=== PATIENT | female | born 1985 | race Hispanic/Latino ===

== ENCOUNTER 2021-02-06 08:22 | Emergency (ER) | payer SELFPAY ==
--- OUTSIDE RECORDS SUMMARY | 2021-02-06 08:24 | XMS REPORT | Continuity of Care Document ---
:1985 Author Organization [facility] t Address [address] [place] [address] Care Team Providers Name Role Phone Lab, Adc Fam Pob I Attending Clinician Unavailable Lab, Covid Attending Clinician Unavailable Problems This patient has no known problems. Allergies, Adverse Reactions, Alerts This patient has no known allergies or adverse reactions. Medications This patient has no known medications. Procedures This patient has no known procedures. Encounters Start End Encounter Admission Attending Care Care Encounter Source Date/Time Date/Time Type Type Clinicians Facility Department ID 2020-10-19 2020-10-19 Laboratory Lab, [facility] [id number] 14:11:54 14:31:54 Only Fam Pob I [facility] [id number] [place] [id number] Professio [phone] nal [address] 2020-07-25 2020-07-25 Laboratory Lab, [facility] [id number] 14:57:41 15:17:41 Only Fam Pob I Health [id number] [place] [id number] Professio [phone] nal [address] 2020-07-25 2020-07-25 Letter Lab, [facility] [id number] 00:00:00 00:00:00 (Out) [facility] [id number] [place] [id number] Professio [phone] nal [address] Results This patient has no known results.
--- NOTE | 2021-02-06 09:19 | RAD REPORT ---
EXAM DESCRIPTION: CT - Head Brain Wo Cont - 02/06/2021 8:58 am CLINICAL HISTORY: Numbness COMPARISON: None. TECHNIQUE: Computed axial tomography of the head was obtained. IV contrast was not requested. All CT scans are performed using dose optimization technique as appropriate and may include automated exposure control or mA/KV adjustment according to patient size. FINDINGS: An intracranial bleed is not seen . The ventricles are normal in caliber. No extra-axial fluid collection is noted. Fluid within the sinuses/ mastoids is not seen. IMPRESSION: No acute intracranial abnormality is seen. If patient's symptoms persist MRI of the bra in would be recommended.
[2021-02-06 09:21] LABS: Absolute Lymphocytes (CBC) 1.6 K/uL (0.7-4.9); Basophils % 0.6 % (0-1.3); Hematocrit 36.7 % (36.0-45.0); Lymphocytes % 26.6 % (15.3-44.8); MPV 8.9 fL (7.6-11.3); RBC Red Blood Cell Count 4.32 M/uL (3.86-4.86)
[2021-02-06 09:35] LABS: Protime INR 0.95
[2021-02-06 09:43] LABS: ALT/SGPT 17 U/L (12-78); AST/SGOT 12 U/L (15-37); Albumin 3.6 g/dL (3.4-5.0); Alkaline Phosphatase 88 U/L (45-117); BUN Blood Urea Nitrogen 7 mg/dL (7-18); Bicarbonate 27 mmol/L (21-32); Bilirubin Direct 0.1 mg/dL (0-0.2); Bilirubin Total 0.5 mg/dL (0.2-1.0); Glucose Level 100 mg/dL (74-106); Magnesium 1.9 mg/dL (1.8-2.4); NT PRO-BNP 39 pg/mL (<125); Potassium 3.8 mmol/L (3.5-5.1); Sodium Level 141 mmol/L (136-145); Troponin (Emerg Dept Use Only) < 0.02 ng/mL (0.0-0.045)
--- NOTE | 2021-02-06 10:20 | RAD REPORT ---
EXAM DESCRIPTION: [place] Single View02/06/2021 9:51 am CLINICAL HISTORY: Cough COMPARISON: none FINDINGS: The lungs appear clear of acute infiltrate. The heart is normal size IMPRESSION: No acute abnormalities displayed
--- NOTE | 2021-02-06 13:14 | RAD REPORT ---
EXAM DESCRIPTION: MRI - Brain W/Wo Cont - 02/06/2021 1:04 pm CLINICAL HISTORY: NUMBNESS Headache, drowsiness, CVA symptomology COMPARISON: MRA Head Wo Cont dated 02/06/2021; Head Brain Wo Cont dated 02/06/2021 TECHNIQUE: Multi-sequence, multiplanar MR imaging of the brain was performed with contrast. FINDINGS: No intracranial hemorrhage, hydrocephalus, or extra-axial fluid collection. No edema or sh ift of midline structures. No intracranial mass. DWI is negative for acute CVA. The midline structures are normally formed. Mastoid air cells and paranasal sinuses are clear. Post-contrast images show no abnormal enhancement to suggest tumor or infection. Small developmental venous anomaly is seen right parietal region, benign. IMPRESSION: No acute or aggressive intracranial abnormalities. No pathologic post-contrast enhancement suspected.
--- NOTE | 2021-02-06 13:16 | RAD REPORT ---
EXAM DESCRIPTION: MRI - MRA Head Wo Cont - 02/06/2021 12:50 pm CLINICAL HISTORY: NUMBNESS CVA COMPARISON: Head Brain Wo Cont dated 02/06/2021; MRA Neck W/Wo Cont dated 02/06/2021 FINDINGS: 3D noncontrast [id number] MR angiography of the [place] was performed. No aneurysm, flow-limiting stenosis or vascular malformation is seen. Forward flow seen in codominant vertebral arteries. The visualized dural venous sinuses appear patent. IMPRESSION: No significant flow abnormality of the [place] is identified.
--- NOTE | 2021-02-06 13:20 | RAD REPORT ---
EXAM DESCRIPTION: MRI - MRA Neck W/Wo Cont - 02/06/2021 1:03 pm CLINICAL HISTORY: NUMBNESS Headache, drowsiness COMPARISON: No comparisons FINDINGS: Contrast enhance 2D [id number] MR angiography of the neck vessels was performed. A left aortic arch is present. Both common carotid arteries and subclavian arteries are patent. Both internal carotid artery show no significant narrowing. No flow abnormality is seen. Antegrade flow in symmetric vertebral artery is noted. IMPRESSION: No flow abnormality of the neck vessels is identified.
--- NOTE | 2021-02-06 13:28 | ER ---
Nurse's Notes [facility] Name: Lilia Murphy Age: 35 yrs Sex: Female : 1985 Arrival Date: 02/06/2021 Time: 08:28 Bed 7 Private MD: Diagnosis: Paresthesia of skin Presentation: 02/06 08:29 Chief complaint: EMS states: called out for left sided facial numbness and left arm em numbness that started 0740 and a headache, pt reports she has had 2 similar episodes and was told it was an anxiety attack, denies any weakness, stoke scale 0, pt reports headache has resolved, rates numbness 5/10, BGL 129 on scene, 20 G RAC. Coronavirus screen: Client denies travel out of the [place] in the last 14 days. Ebola Screen: Patient negative for fever greater than or equal to 101.5 degrees Fahrenheit, and additional compatible Ebola Virus Disease symptoms Patient denies exposure to infectious person. Patient denies travel to an Ebola-affected area in the 21 days before illness onset. No symptoms or risks identified at this time. Initial Sepsis Screen: Does the patient meet any 2 criteria? No. Patient's initial sepsis screen is negative. Does the patient have a suspected source of infection? No. Patient's initial sepsis screen is negative. Risk Assessment: Do you want to hurt yourself or someone else? Patient reports no desire to harm self or others. Onset of symptoms was February 06, 2021. 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 - Social history:: Smoking status: Patient denies any tobacco usage or history of. Screenin:34 Abuse screen: Denies threats or abuse. Nutritional screening: No deficits noted. em Tuberculosis screening: No symptoms or risk factors identified. Fall Risk None identified. Assessment: 08:29 General: Appears in no apparent distress. comfortable, Behavior is calm, cooperative, em appropriate for age. Pain: Denies pain. Neuro: Level of Consciousness is awake, alert, obeys commands, Oriented to person, place, time, situation, Appropriate for age Moves all extremities. Gait is steady, Speech is normal, Facial symmetry appears normal, Numbness in left cheek, left jaw and left arm. Cardiovascular: Capillary refill < 3 seconds Patient's skin is warm and dry. Respiratory: Airway is patent Respiratory effort is even, unlabored, Respiratory pattern is regular, symmetrical. Derm: Skin is intact, is healthy with good turgor, Skin is pink, warm \T\ dry. Musculoskeletal: Capillary refill < 3 seconds, Range of motion: intact in all extremities. 09:20 Reassessment: pt ambulated to the restroom with steady gait, reports facial numbness is em improving, rates numbness 12/19. 11:02 General: Appears in no apparent distress. comfortable, Behavior is calm, cooperative. vg1 Pain: Denies pain. Neuro: Level of Consciousness is awake, alert, obeys commands, Oriented to person, place, time, situation. Cardiovascular: Patient's skin is warm and dry. Respiratory: Airway is patent Respiratory effort is even, unlabored. Respiratory: Airway is patent Respiratory effort is even, unlabored. GI: No signs and/or symptoms were reported involving the gastrointestinal system. : No signs and/or symptoms were reported regarding the genitourinary system. EENT: No signs and/or symptoms were reported regarding the EENT system. Derm: Skin is intact, is healthy with good turgor. Musculoskeletal: Circulation, motion, and sensation intact. 11:02 Reassessment: Pt stated 'my pulse went up to about 130 then all of a sudden had a vg1 headache but then my pulse went back down and headache went away.' Notified provider. 11:56 Reassessment: Pt stated her pulse 'increased again to 142' and 'my head started to hurt vg1 again'. Pulse is currently 68. Provider notified. 13:19 Reassessment: Patient appears in no apparent distress at this time. No changes from vg1 previously documented assessment. Patient and/or family updated on plan of care and expected duration. Pain level reassessed. Patient is alert, oriented x 3, equal unlabored respirations, skin warm/dry/pink. Vital Signs: 08:29 BP 124 / 94; Pulse 72; Resp 18; Temp 98.6(O); Pulse Ox 100% on R/A; Weight 77.11 kg; em Height 5 ft. 3 in. (160.02 cm); Pain 0/10; 09:30 BP 107 / 78; Pulse 71; Resp 18; Pulse Ox 100% ; sv 10:15 BP 104 / 73; Pulse 66; Resp 18; Pulse Ox 100% ; sv 11:14 BP 114 / 86; Pulse 71; Resp 18; Pulse Ox 100% ; sv 13:19 BP 120 / 80; Pulse 68; Resp 16; Pulse Ox 100% on R/A; vg1 08:29 Body Mass Index 30.11 (77.11 kg, 160.02 cm) em ED Course: 08:28 Patient arrived in ED. em 08:33 Sergio Mccann MD is Attending Physician. kdr 08:33 Triage completed. em 08:34 Pawel Murphy, RN is Primary Nurse. em 08:34 Arm band placed on. em 08:34 Patient has correct armband on for positive identification. Bed in low position. Call em light in reach. Pulse ox on. NIBP on. 08:34 Maintain EMS IV. Good blood return noted. Site clean \T\ dry. Gauge \T\ site: 20 R AC. em 08:58 Head Brain Wo Cont CT In Process Unspecified. EDMS 09:51 XRAY Chest (1 view) In Process Unspecified. EDMS 10:18 Primary Nurse role handed off by Pawel Murphy, PAULINA em 10:20 Pawel Murphy, RN is Primary Nurse. em 11:02 Primary Nurse role handed off by Pawel Murphy, PAULINA vg1 11:02 Chery Lucia, RN is Primary Nurse. vg1 11:58 Patient moved to MRI via wheelchair. vg1 12:50 MRA Head Wo Cont In Process Unspecified. EDMS 13:03 Brain W/Wo Cont In Process Unspecified. EDMS 13:03 MRA Neck W/Wo Cont In Process Unspecified. EDMS 13:57 No provider procedures requiring assistance completed. IV discontinued, intact, vg1 bleeding controlled, No redness/swelling at site. Pressure dressing applied. Administered Medications: No medications were administered Outcome: 13:27 Discharge ordered by . kdr 13:58 Discharged to home ambulatory, with family. vg1 13:58 Condition: stable 13:58 Discharge instructions given to patient, Instructed on discharge instructions, follow up and referral plans. Demonstrated understanding of instructions, follow-up care. 13:58 Patient left the ED. vg1 Signatures: Dispatcher [employer] Litzy Sanchez, RN RN Sergio Grossman MD MD kdr Munoz, Edgar, RN RN Chery Morgan RN RN vg1
--- NOTE | 2021-02-06 13:28 | EDPHYS ---
Physician Documentation [facility] Name: Lilia Murphy Age: 35 yrs Sex: Female : 1985 Arrival Date: 02/06/2021 Time: 08: Bed 7 Private MD: ED Physician Sergio Mccann HPI: 02/07 08:41 This 35 yrs old Female presents to ER via EMS with complaints of Numbness Of kdr Face, Numbness Of Hand. 08:41 The patient's problem is reported as paresthesias, in left upper extremity, in left kdr side of face. Onset: The symptoms/episode began/occurred this morning. Duration: This was a single incident, The episode is continuous, Improving with time since onset. Context: the episode(s) was witnessed, by EMS personnel, symptoms became apparent at 07:40. occurred at home, occurred while the patient was at rest, Possible contributing factors include:. The symptoms are alleviated by nothing. The symptoms are aggravated by nothing. Associated signs and symptoms: The patient has no apparent associated signs or symptoms. Severity of symptoms: At their worst the symptoms were very mild mild in the emergency department the symptoms have improved mildly, moderately. Patient's baseline: Neuro: alert and fully oriented, Motor: no deficits, Ambulation: walks without assistance, Speech: normal. The patient has experienced similar episodes in the past, a few times, but today's symptoms are not as bad as this previous episode. The patient has not recently seen a physician. 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 - Social history:: Smoking status: Patient denies any tobacco usage or history of. ROS: 02/07 08:41 Constitutional: Negative for fever, chills, and weight loss, Eyes: Negative for injury, kdr pain, redness, and discharge, ENT: Negative for injury, pain, and discharge, Neck: Negative for injury, pain, and swelling, Cardiovascular: Negative for chest pain, palpitations, and edema, Respiratory: Negative for shortness of breath, cough, wheezing, and pleuritic chest pain, Abdomen/GI: Negative for abdominal pain, nausea, vomiting, diarrhea, and constipation, Back: Negative for injury and pain, : Negative for injury, bleeding, discharge, and swelling, MS/Extremity: Negative for injury and deformity, Skin: Negative for injury, rash, and discoloration, Psych: Negative for depression, anxiety, suicide ideation, homicidal ideation, and hallucinations, Allergy/Immunology: Negative for hives, rash, and allergies, Endocrine: Negative for neck swelling, polydipsia, polyuria, polyphagia, and marked weight changes, Hematologic/Lymphatic: Negative for swollen nodes, abnormal bleeding, and unusual bruising. Neuro: Positive for numbness, tingling, of the left ear, left cheek, left roman catholic, left jaw and left arm. Exam: 08:41 Constitutional: This is a well developed, well nourished patient who is awake, alert, kdr and in no acute distress. Head/Face: Normocephalic, atraumatic. Eyes: Pupils equal round and reactive to light, extra-ocular motions intact. Lids and lashes normal. Conjunctiva and sclera are non-icteric and not injected. Cornea within normal limits. Periorbital areas with no swelling, redness, or edema. Neck: Trachea midline, no thyromegaly or masses palpated, and no cervical lymphadenopathy. Supple, full range of motion without nuchal rigidity, or vertebral point tenderness. No Meningismus. Chest/axilla: Normal chest wall appearance and motion. Nontender with no deformity. No lesions are appreciated. Cardiovascular: Regular rate and rhythm with a normal S1 and S2. No gallops, murmurs, or rubs. Normal PMI, no JVD. No pulse deficits. Respiratory: Lungs have equal breath sounds bilaterally, clear to auscultation and percussion. No rales, rhonchi or wheezes noted. No increased work of breathing, no retractions or nasal flaring. Abdomen/GI: Soft, non-tender, with normal bowel sounds. No distension or tympany. No guarding or rebound. No evidence of tenderness throughout. Back: No spinal tenderness. No costovertebral tenderness. Full range of motion. Skin: Warm, dry with normal turgor. Normal color with no rashes, no lesions, and no evidence of cellulitis. MS/ Extremity: Pulses equal, no cyanosis. Neurovascular intact. Full, normal range of motion. Neuro: Awake and alert, GCS 15, oriented to person, place, time, and situation. Cranial nerves II-XII grossly intact. Motor strength 5/5 in all extremities. Sensory grossly intact. Cerebellar exam normal. Normal gait. Psych: Awake, alert, with orientation to person, place and time. Behavior, mood, and affect are within normal limits. 08:41 Neuro: Orientation: is normal, Mentation: is normal, Memory: is normal, Sensation: no obvious gross deficits, numbness, tingling, that is mild, of the forehead, left ear, left cheek and left jaw. 08:53 Radiologist reports: Negative kdr Vital Signs: 02/06 08:29 BP 124 / 94; Pulse 72; Resp 18; Temp 98.6(O); Pulse Ox 100% on R/A; Weight 77.11 kg; em Height 5 ft. 3 in. (160.02 cm); Pain 0/10; 09:30 BP 107 / 78; Pulse 71; Resp 18; Pulse Ox 100% ; sv 10:15 BP 104 / 73; Pulse 66; Resp 18; Pulse Ox 100% ; sv 11:14 BP 114 / 86; Pulse 71; Resp 18; Pulse Ox 100% ; sv 13:19 BP 120 / 80; Pulse 68; Resp 16; Pulse Ox 100% on R/A; vg1 08:29 Body Mass Index 30.11 (77.11 kg, 160.02 cm) em MDM: 13:27 Patient medically screened. kdr 02/07 08:41 Data reviewed: vital signs, nurses notes, lab test result(s), radiologic studies. kdr Counseling: I had a detailed discussion with the patient and/or guardian regarding: the historical points, exam findings, and any diagnostic results supporting the discharge/admit diagnosis, lab results, radiology results, the need for outpatient follow up. 02/06 08:41 Order name: Basic Metabolic Panel; Complete Time: 11:15 em 02/06 08:41 Order name: CBC with Diff; Complete Time: 11:15 em 02/06 08:41 Order name: LFT's; Complete Time: 11:15 em 02/06 08:41 Order name: Magnesium; Complete Time: 11:15 em 02/06 08:41 Order name: NT PRO-BNP; Complete Time: 11:15 em 02/06 08:41 Order name: PT-INR; Complete Time: 11:15 em 02/06 08:41 Order name: Troponin (emerg Dept Use Only); Complete Time: 11:15 em 02/06 08:41 Order name: XRAY Chest (1 view); Complete Time: 11:15 em 02/06 08:41 Order name: EKG; Complete Time: 08:43 em 02/06 08:41 Order name: Head Brain Wo Cont CT; Complete Time: 11:15 em 02/06 12:08 Order name: MRA Head Wo Cont; Complete Time: 13:25 EDMS 02/06 12:10 Order name: Brain W/Wo Cont; Complete Time: 13:25 EDMS 02/06 12:10 Order name: MRA Neck W/Wo Cont; Complete Time: 13:25 EDMS 02/06 08:41 Order name: Cardiac monitoring; Complete Time: 08:42 em 02/06 08:41 Order name: EKG - Nurse/Tech; Complete Time: 11:18 em 02/06 08:41 Order name: IV Saline Lock; Complete Time: 08:42 em 02/06 08:41 Order name: Labs collected and sent; Complete Time: 08:42 em 02/06 08:41 Order name: O2 Per Protocol; Complete Time: 08:42 em 02/06 08:41 Order name: O2 Sat Monitoring; Complete Time: 08:42 em Administered Medications: No medications were administered Disposition: 02/06/21 13:27 Discharged to Home. Impression: Paresthesia of skin. - Condition is Stable. - Discharge Instructions: Paresthesia, [id number], Generalized Anxiety Disorder. - Medication Reconciliation Form, Thank You Letter form. - Follow up: Private Physician; When: 2 - 3 days; Reason: If symptoms return, Further diagnostic work-up, Recheck today's complaints, Continuance of care, Re-evaluation by your physician. - Problem is new. - Symptoms have improved. Signatures: Dispatcher [employer] Sergio Allred MD MD kdr Munoz, Edgar, RN RN Chery Morgan RN RN vg1 Corrections: (The following items were deleted from the chart) 02/06 12:08 11:30 MR STROKE PROTOCOL+MRI.RAD.BRZ ordered. EDMS EDMS 13:58 13:27 02/06/2021 13:27 Discharged to Home. Impression: Paresthesia of skin. Condition vg1 is Stable. Forms are Medication Reconciliation Form, Thank You Letter, Antibiotic Education, Prescription Opioid Use. Follow up: Private Physician; When: 2 - 3 days; Reason: If symptoms return, Further diagnostic work-up, Recheck today's complaints, Continuance of care, Re-evaluation by your physician. Problem is new. Symptoms have improved. kdr
[2021-02-06 14:20] VITALS: TEMP 98.6; O2SAT 100
[2021-02-06 14:26] VITALS: BP 120/80
== END 2021-02-06 13:58 | disposition home or self-care (01) ==
LOC: ER 08:22
DX: R20.2 Paresthesia of skin (principal)
CPT/HCPCS: 36415; 70450; 70544; 70549; 70553; 71045; 80048; 80076; 83735; 83880; 84484; 85025; 85610; 93005; 99284; A9577